=== PATIENT | male | born 1965 | race American Indian/Alaskan Native ===

== ENCOUNTER 2016-09-30 20:03 | Emergency (ER) | payer OTHER ==
[2016-09-30 21:20] VITALS: BP 188/111
[2016-09-30 21:25] LABS: Bilirubin,Urine NEG (Negative); Blood,Urine NEG (Negative); Ketones,Urine NEG (Negative); Leukocyte Esterase,Urine NEG (Negative); Mucus,Urine 3+ /HPF; Nitrite,Urine NEG (Negative); Protein,Urine <15 mg/dL mg/dL (Negative); Urobilinogen,Urine < 2.0 mg/dL (<2.0); WBC,Urine < 1.0 /HPF (0.0-6.0)
[2016-10-01] MEDS ORDERED: XYLOCAINE 1% 20 mL INFILTRATI ONE (00:03)
--- NOTE | 2016-10-01 00:41 | Emergency Department Report ---
ED Male HPI - General Chief complaint: Urogenital-Male Stated complaint: CONSTANT ERECTION Time Seen by Provider: 09/30/16 23:39 Source: patient Mode of arrival: Ambulatory Limitations: No Limitations - History of Present Illness Initial comments: This is a pleasant 50-year-old gentleman who reports after being awake this morning he began having an erection. He states that throughout the day the erection has persisted. He states his bit hard throughout the day. It is not ever gone down throughout the day. He states over the course the evening he became and his opinion more uncomfortable and firmer. He felt like to size to come in for evaluation this time. He is not any type of erectile stimulants such as dialysis or Levitra there've been no recent medication changes. He does have a history of CHF and COPD. He is not having any pain with urination. He denies any testicular pain. He denies any trauma. He denies any abdominal pain associated with this. He denies any recent saddle injuries. This has never occurred before. No change of discomfort with position. - Related Data Previous Rx's Medication Instructions Recorded Last Taken Type oxyCODONE /ACETAMINOPHEN [Percocet 1 tab PO Q6HR PRN #15 tablet 10/01/16 Unknown Rx 5/325] Allergies Allergy/AdvReac Type Severity Reaction Status Date / Time No Known Allergies Allergy Unverified 09/30/16 20:16 ED Review of Systems ROS: Stated complaint: CONSTANT ERECTION Other details as noted in HPI Comment: All other systems reviewed and negative Constitutional: denies: chills, fever Eyes: denies: eye pain, eye discharge, vision change ENT: denies: ear pain, throat pain Respiratory: denies: cough, shortness of breath, wheezing Cardiovascular: denies: chest pain, palpitations Endocrine: no symptoms reported Gastrointestinal: denies: abdominal pain, nausea, diarrhea Genitourinary: other (erection.). denies: urgency, dysuria Musculoskeletal: denies: back pain, joint swelling, arthralgia Skin: denies: rash, lesions Neurological: denies: headache, weakness, paresthesias Psychiatric: denies: anxiety, depression Hematological/Lymphatic: denies: easy bleeding, easy bruising ED Past Medical Hx - Past Medical History Hx Hypertension: Yes Hx Congestive Heart Failure: Yes Hx COPD: Yes - Social History Smoking Status: Never Smoker Substance Use Type: Alcohol - Medications Home Medications: Home Medications Medication Instructions Recorded Confirmed Last Taken Type oxyCODONE /ACETAMINOPHEN [Percocet 1 tab PO Q6HR PRN #15 tablet 10/01/16 Unknown Rx 5/325] ED Physical Exam - General Limitations: No Limitations General appearance: alert, in no apparent distress - Head Head exam: Present: atraumatic, normocephalic - Eye Eye exam: Present: normal appearance, EOMI. Absent: scleral icterus - ENT ENT exam: Present: normal exam, normal orophraynx, mucous membranes moist - Neck Neck exam: Present: normal inspection, full ROM. Absent: meningismus, lymphadenopathy - Respiratory Respiratory exam: Present: normal lung sounds bilaterally. Absent: respiratory distress, wheezes, rales - Cardiovascular Cardiovascular Exam: Present: regular rate, normal rhythm. Absent: systolic murmur, diastolic murmur, rubs, gallop - GI/Abdominal GI/Abdominal exam: Present: soft, normal bowel sounds, other (obese). Absent: tenderness, guarding - Rectal Rectal exam: Present: deferred - External exam: Present: other (no testicular tenderness is appreciated. Does have erected penis without any lesions noted. It is very firm.) - Extremities Exam Extremities exam: Present: normal inspection, pedal edema (1+ bilaterally with equal distal pedal pulses bilaterally.), other (brawny skin chronic changes of the pretibial region bilaterally.). Absent: tenderness, calf tenderness - Back Exam Back exam: Present: normal inspection - Neurological Exam Neurological exam: Present: alert, oriented X3 - Psychiatric Psychiatric exam: Present: normal affect, normal mood - Skin Skin exam: Present: warm, dry, intact, normal color. Absent: rash ED Course Vital Signs 09/30/16 09/30/16 20:12 21:19 Temperature 98 F Pulse Rate 98 H 90 Respiratory 20 Rate Blood Pressure 198/118 Blood Pressure 188/111 [Right] O2 Sat by Pulse 99 Oximetry - Reevaluation(s) Reevaluation #1: 10/01/16 06:10 Please note my procedure note. Majority of time was taken and performing the procedure. I had no suspicion for high flow priapism. I didn't do routine stepwise approach for low femoral flow priapism. It was relatively difficult ultimately achieve detumescence that was sustainable. I think part of my mistake was not using Candelario wrap after the initial aspiration of the corpus cavernosum. He appears improved at this time is been given referral for urology and safe for home at this time. - Procedure Description Procedures done: Using a sterile technique detumescence of the penis was achieved after anesthetizing the lateral aspects of the base of the penis with 1 % lidocaine. Using a 19-gauge syringe the discover no some was drained of venous blood. This was done bilaterally. Phenylephrine was injected in on several different occasions. The patient did have a recurrence of his priapism. Corporis cavernosus aspiration was again repeated. Patient did have phenylephrine instilled into the Breast cavernosum. A Candelario wrap was placed around the penis. He was observed here for a couple of hours. He did ultimately have resolution of the priapism with this procedure. Only complication really was the length that it took for the procedure to be successful. Patient tolerated it well in general. ED Medical Decision Making - Lab Data Result diagrams: 10/01/16 00:15 10/01/16 00:15 Critical care attestation.: If time is entered above; I have spent that time in minutes in the direct care of this critically ill patient, excluding procedure time. ED Disposition Clinical Impression: Priapism, unspecified Disposition: DISCHARGED TO HOME OR SELFCARE Is pt being admited?: No Does the pt Need Aspirin: No Condition: Stable Instructions: Priapism (ED) Prescriptions: oxyCODONE /ACETAMINOPHEN [Percocet 5/325] 1 tab PO Q6HR PRN #15 tablet PRN Reason: Pain Referrals: PRIMARY CAREMD [Primary Care Provider] - 3-5 Days [facility] [Provider Group] - 3-5 Days Time of Disposition: 04:00
[2016-10-01 00:57] LABS: Eosinophils % (Auto) 0.7 % (0.0-4.3); Hematocrit 36.8 % (35.5-45.6); Hemoglobin 11.9 gm/dl (11.8-15.2); Mean Corpuscular HGB Conc 32 % (32-34); Mean Corpuscular Hemoglobin 28 pg (28-32); Mean Corpuscular Volume 87 fl (84-94); Platelet Count 253 K/mm3 (140-440); Red Blood Count 4.23 M/mm3 (3.65-5.03); Red Cell Distribution Width 15.2 % (13.2-15.2); White Blood Count 7.6 K/mm3 (4.5-11.0)
[2016-10-01] MEDS ORDERED: NEO SYNEPHRINE/NS Syringe(OR USE) IV SCH ×3 (01:00)
[2016-10-01 01:05] LABS: Anion Gap 15 mmol/L; BUN/Creatinine Ratio 12.72; Blood Urea Nitrogen 14 mg/dL (9-20); Calcium 8.9 mg/dL (8.4-10.2); Carbon Dioxide 28 mmol/L (22-30); Chloride 100.7 mmol/L (98-107); Glucose 82 mg/dL (75-100); Potassium 4.5 mmol/L (3.6-5.0); Sodium 139 mmol/L (137-145)
[2016-10-01] MEDS ORDERED: PERCOCET 5/325 PO ONE (02:35)
== END 2016-10-01 04:30 | disposition home or self-care (01) ==
LOC: ED 20:03
DX: N48.30 Priapism, unspecified (principal); I10 Essential (primary) hypertension; I50.9 Heart failure, unspecified; J44.9 Chronic obstructive pulmonary disease, unspecified
CPT/HCPCS: 36415; 54220; 80048; 81001; 85025; 99283; J2370